=== PATIENT | female | born 1955 | race African-American/Black ===

== ENCOUNTER 2020-10-17 18:59 | Emergency (ER) | payer MEDICAID ==
[~2020-10-17] VITALS: Ht 157.5 cm; Wt 54.4 kg
[~2020-10-17 18:59] MED LIST: GABA300C10 PO; METO-158 PO; MORP-110 PO; NAP500T PO; PERCOT PO
[2020-10-17] MEDS ORDERED: NALOXONE HCL 0.4 MG/ML VIAL ONE (19:12)
[2020-10-18 07:10] VITALS: BP 142/66
== END 2020-10-18 07:05 | disposition home or self-care (01) ==
LOC: EDBD 18:59 → ER 18:59
DX: T40.601A Poisoning by unspecified narcotics, accidental (unintentional), initial encounter (principal); I10 Essential (primary) hypertension; E78.5 Hyperlipidemia, unspecified; Z79.899 Other long term (current) drug therapy; X58.XXXA Exposure to other specified factors, initial encounter; Y93.89 Activity, other specified; Y92.89 Other specified places as the place of occurrence of the external cause; Y99.8 Other external cause status
CPT/HCPCS: 93005; 99285; J2310